=== PATIENT | female | born 1995 | race Hispanic/Latino ===

== ENCOUNTER 2023-09-04 20:55 | Emergency (ER) | payer OTHER ==
[~2023-09-04] VITALS: Ht 157.5 cm; Wt 70.3 kg
[2023-09-04] MEDS ORDERED: ALBU90AE2 IH (21:56)
[2023-09-04 22:12] VITALS: BP 130/67; PULSE 93; RESP 19; O2SAT 99
== END 2023-09-04 22:14 | disposition home or self-care (01) ==
LOC: EDBD 20:55 → EDH 20:55
DX: J45.909 Unspecified asthma, uncomplicated (principal)